=== PATIENT | female | born 1950 | race Caucasian/White ===

== ENCOUNTER 2018-02-10 09:35 | Day surgery (SDC) | payer MEDICARE ==
[~2018-02-10] VITALS: Ht 160 cm; Wt 50.5 kg
[2018-02-10] MEDS ORDERED: Levothyroxine200 MCG (09:58)
[2018-02-10] MEDS ORDERED: LATANOPROST1 GM (09:59)
[2018-02-10] MEDS ORDERED: FLUO10 (09:59)
[2018-02-10] MEDS ORDERED: CYAN500 (10:00)
[2018-02-10] MEDS ORDERED: Triamcinolone A15 G2 (10:00)
== END 2018-02-10 11:45 | disposition home or self-care (01) ==
LOC: ORSCSDS 09:35
PROVIDERS: Internal Medicine Gastroenterology
PROC: 0DBP8ZX Excision of Rectum, Via Natural or Artificial Opening Endoscopic, Diagnostic (ICD-10-PCS; principal; 2018-02-10 11:00)
DX: Z12.11 Encounter for screening for malignant neoplasm of colon (principal); K62.1 Rectal polyp; K57.30 Diverticulosis of large intestine without perforation or abscess without bleeding; Z80.0 Family history of malignant neoplasm of digestive organs; Z87.891 Personal history of nicotine dependence; Z79.899 Other long term (current) drug therapy
CPT/HCPCS: 88305; J7120